=== PATIENT | female | born 1970 | race Caucasian/White ===

== ENCOUNTER 2018-10-07 06:20 | Day surgery (SDC) | payer OTHER ==
[2018-10-07] MEDS ORDERED: PROPOFOL 40 ML (07:33)
[2018-10-07] MEDS ORDERED: PROPOFOL 20 ML ×2 (08:22)
== END 2018-10-07 15:12 | disposition home or self-care (01) ==
LOC: GIL 06:20
DX: R19.5 Other fecal abnormalities (principal); D12.2 Benign neoplasm of ascending colon; K20.8 Other esophagitis; E78.5 Hyperlipidemia, unspecified
CPT/HCPCS: 43239; 84703; 88305; 88312; 88313